=== PATIENT | female | born 1925 | race Caucasian/White ===

== ENCOUNTER 2016-06-09 16:57 | Emergency (ER) | payer MEDICARE ==
[~2016-06-09] VITALS: Ht 154.9 cm; Wt 63.5 kg
[~2016-06-09 16:57] MED LIST: ACET-2267 PO; ALBU2.5V4 INH; ALBU8.5H2 IH; AMIO200T10 PO; AMIO200T2 PO; AMIO400T5 PO; AMLO10TA PO; AMLO10TA82 PO; APIX5TAB PO; ASP325T PO; ASP325TEC PO; ASP81TEC PO; ASPI-586 PO; ASPI-875 PO; ATR20T; CARV12.5 PO; CARV12.53 PO; CARV25TA PO; CEFD300C3 PO; CEFU500T PO; CEFU500T5 PO; CERAVE TOP; CHLO473M PO; CLC500CT PO; CLD600T PO; CLOBETASOL; CYCL1DRO OU; DIGO125T PO; DIOVAN; DOXY100T2 PO; ENAL10TA; ENAL2.5T PO; FLUO40CR3 TOP; FLUO40CR8 TP; FLUT16SP22; FLUT16SP22 NSEACH; FLUT9.9S; FURO20TA4 PO; FURO40TA4 PO; GLUC-147 PO; GLUC500C2 PO; GLUCOSAMINE; GUAI600T43 PO; HCT; HYDR-2854 PO; HYDR-3729 PO; HYDR-3812 PO; HYDR-700 PO; IBUP-15 PO; IPRA0.2S18 IH; IPRA3AMP IH; KETO15CR TP; LISI-596 PO; LISI10TA PO; LISI1TAB PO; LORA10TA7 PO; LOSA100T16 PO; LOSA50TA6 PO; LOVA10TA PO; LSNP20T PO; METO-270 PO; METO-272 PO; METO100T2 PO; METO50TA7; MTP50T PO; MULT-608; MULT-974 PO; MULT1TAB63; NFAMINITAB PO; NITR100C3 PO; NTR.4SL; NTR.4SL SL; OMEG1CAP74 PO; OMG1KC PO; OTC LAXATIVE; OXB5TCR; OXYB10TA PO; OXYB5TAB9 PO; PHEN200T27 PO; POLY119P PO; POLY255P PO; POTA10CA43 PO; POTA10CA68 PO; POTA10TA6 PO; POTA20TA15 PO; PRADAXA PO; PRD10T PO; PRD20T PO; PROP15DR OU; RANI-10 PO; RANI150T11 PO; RISP0.5T3 PO; RMP5C; ROSU5TAB; ROSU5TAB PO; SODI51CR7 DT; SULAR; TIOT18CA2 IH; TOBR5DRO12; TR1C15 TP; TRET40CR2 TP; TRIA15CR TP; WARF-47 PO; WARF2TAB6 PO; WARF2TAB8 PO; WRF1T PO; WRF2T PO; [UNRECOGNIZED DRUG - OTHER]
--- OUTSIDE RECORDS SUMMARY | 2016-06-09 17:02 | XMS REPORT | Continuity of Care Document ---
Author Author [facility] Organization [facility] Address Unknown Phone Unavailable Care Team Providers Care Insurance Law Specialist Name Role Phone Francisco J Sweeney PCP [phone] Source Comments Some departments are not documenting in the electronic medical record. If you do not see the information that you expected, contact Release of Information in the Health Information Management department at [phone] for further assistance in locating additional records.[facility] Active Allergies and Adverse Reactions Allergen Noted Date Severity Reactions Comments Pradaxa 12/18/2013 UNKNOWN Current Medications Prescription Sig. Disp. Refills Start End Date Status Date lovastatin(+) (MEVACOR) Take 10 mg by mouth at Active 10 mg PO tablet bedtime daily. CALCIUM CARBONATE/VITAMIN Take 1,200 mg by mouth. Active D3 (CALCIUM 600 + D PO) oxybutynin (DITROPAN) 5 Take 5 mg by mouth four Active mg tablet times daily. ranitidine(+) (ZANTAC) Take 150 mg by mouth as Active 150 mg tablet Needed. PEG 400-Propylene Glycol Place into or around Active (SYSTANE) 0.4-0.3 % drop eye(s) twice daily. MULTIVITAMIN PO Take 1 Tab by mouth Active daily. polyethylene glycol 3350 Take 17 g by mouth daily. Active (GLYCOLAX; MIRALAX) 17 gram/dose powder glucosamine Take 1 Tab by mouth twice Active mtr-shqxywmssf-ekk daily. (CONDROLITE) 500-200-150 mg tab carvedilol (COREG) 6.25 Take 6.25 mg by mouth Active mg tablet twice daily with meals. tiotropium (SPIRIVA) 18 Inhale 18 mcg by mouth Active mcg capsule for inhaler daily. OXYGEN-AIR DELIVERY Use as directed at Active [facility] bedtime daily. 2 Liters at bedtime albuterol (VENTOLIN HFA, Inhale 2 Puffs by mouth Active PROAIR HFA) 90 every 6 hours as needed mcg/actuation inhaler for Wheezing. aspirin EC 81 mg tablet Take 81 mg by mouth Active daily. Active Problems Problem Noted Date TR (tricuspid regurgitation) 04/26/2015 Last Assessment & Plan: ADRIA in 01/2014: Moderate tricuspid valve regurgitation. EF 55%, PFO+ Sick sinus syndrome ([facility]) 04/08/2015 Overview: Pacemaker Tobacco use 04/08/2015 Hyperlipidemia 12/18/2013 Overview: Last profile 12/2012 cholesterol 136, HDL 47, LDL 60, triglyceride 147 CHF (congestive heart failure) ([facility]) 12/18/2013 Overview: Chronic compensated left ventricular systolic dysfunction. Echo 11/12/2013 1. Normal left ventricle size w/mild left ventricular hypertropy. Normal systolic function. EF 50% 2. Left atrial dilation, dilated right heart chambers. 3. Mild mitral regurg. Mild tricuspid regurg. 4. Pulmonary hypertension with estimated pulmonary artery pressure of 50 mmHg Diastolic dysfunction 12/18/2013 Pulmonary hypertension ([facility]) 12/18/2013 Overview: Echo 11/12/2013 - Pulmonary hypertension with estimated pulmonary artery pressure of 50 mmHg ASD (atrial septal defect) 12/18/2013 Overview: With [id number] shunt. Asymptomatic. PFO (patent foramen ovale) 12/18/2013 Carotid stenosis 12/13/2012 Overview: Carotid duplex - 08/08/2012 - Right severe ICA stenosis 60-79%. Left mod ICA stenosis 40-59% 04/29/2014 - Carotid Ultrasound: Severe carotid stenosis on the right side, slightly deteriorated compared to the previous study. Moderate carotid stenosis 40 - 59% on the left side, nonobstructive disease, antegrade vertebral flow. Recommend one year follow up. ([employer]ia [employer]) 12/2012; Carotid angiogram at [facility]: Right carotid showed 40-45% narrowing. Left carotid no stenosis. L ast Assessment & Plan: 12/2012: Interventional radiology carotid angiogram: Right carotid showed 40-45% narrowing. Left carotid no stenosis. Right carotid was false positive on other tests due to severe calcification. Dr. Jose from CT surgery evaluated and recommended no surgery. Unless she is symptomatic ultrasound is going to be false positive and angiogram will be needed. 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 CAD (coronary artery disease) 02/03/2011 Overview: 1. Pt states that she had stents placed in 1999 in [place], [place]. No records. 2. Cardiolite stress test 11/20/07: A. Positive stress test by EKG criteria B. Frequent PVCs and few episodes of VT during exercise C. Hypotension induced by exercise, returned to baseline during recovery. 3. Cardiac Cath : December, A. Patent stents in the LAD and RCA. Mild to moderate instent restenosis In the LAD B. 60% ostial diagonal obtuse marginal branch, mainly nonobstructive disease 1. Medical therapy 4. Lexiscan Stress Test:11/26/2012: Nl LV size with mild hypokinesia involving the anterior wall and anterior septum, true septum. Calculated EF at 45% No significant ischemia or infoarciton on SPECT images. Freq PVC's and atrial premature contractions. Atrial fibrillation, persistent (HCC) 02/03/2011 Overview: Pt states that this started when having bladder tumors removed in Apr. 1. Echo: 11/09/10 A. Normal left ventricular size with mid hypokinesia involving the anterior wall, anteroseptum. Estimated EF is 40% B. Biatrial enlargement with atrial septal defect with left to right shunt. C. Mild to moderate mitral regurgitaion, moderate tricuspid regurgitation. D. Estimated pulmonary artery pressure of 30 mmHg. 2. Plan on 01/25/[address] Mc was for ADRIA and Cardioversion. 3. ADRIA: 01/27/11 A. Persistence of echogenic density within the left atrial appendage, probably representing a thrombus at the left atrial Appendage. B. Dilated left ventricle with diffuse left ventricular hypokinesia. C. Estimated EF is 30 % D. Atrial septal defect with left to right shunt 4. Plan: Referral to an cod clerk. 5. Pacemaker insertion Dr Jesusita Poole, [place], [place] 03/08/11 per pt. (see procedure note scanned into [employer] [place]) 6. 01/15/2014 - DCCV: Successful DC cardioversion of Atrial fibrillation to an atrial paced rhythm. Restarted on Amiodarone. L ast Assessment & Plan: Failed Amiodarone and DCCV. D/C Amiodarone Start Digoxin Consider d/c Antiocaogulation Resolved Problems Problem Noted Date Resolved Date Sick sinus syndrome (HCC) 12/18/2013 03/06/2015 Overview: PPM 03/06/2011 medtronic Atrial thrombus (HCC) 02/03/2011 03/06/2015 Overview: Found with ADRIA on 01/27/11 and post PAF which started in Apr according to the pt. Most Recent Encounters Date Type Specialty Providers Description 06/09/2016 Documentation Cardiology Riya Damon, CONRADO 05/18/2016 Documentation Cardiology Carissa Santos RN Other - Via [employer] heart cath report scanned to patient chart 05/10/2016 Documentation Cardiology Elis Dunlap, Anticoagulation - INR RN 2.0-managed by PCP 04/13/2016 Documentation Cardiology Ange Ledezma Labs Only - Historical 04/12/2016 Documentation Cardiology Xin Nolasco RN Lab Results - INR 2.9, PCP manages 03/23/2016 Documentation Cardiology Ange Ledezma Labs Only - Historical Labs 03/15/2016 Documentation Cardiology Riya Damon RN Anticoagulation - INR 2.6 from PCP office Social History Tobacco Use Types Packs/Day Years Used Date Current Some Day Smoker Cigarettes 0.5 60 Smokeless Tobacco: Never Used Alcohol Use Drinks/Week oz/Week Comments Yes 2 Glasses of 1.2 3 times weekly wine Last Filed Vital Signs Vital Sign Reading Time Taken Blood Pressure 90/50 04/11/2015 9:21 AM WIRE COATING MACHINE OPERATOR Pulse 91 04/11/2015 9:11 AM WIRE COATING MACHINE OPERATOR Temperature 36.6 C (97.9 F) 12/13/2012 9:18 AM CDT Respiratory Rate - - Height 1.626 m (5' 4.02") 04/11/2015 9:11 AM WIRE COATING MACHINE OPERATOR Weight 66.044 kg (145 lb 9.6 oz) 04/11/2015 9:11 AM WIRE COATING MACHINE OPERATOR Body Mass Index 24.98 04/11/2015 9:11 AM WIRE COATING MACHINE OPERATOR Oxygen Saturation 98% 01/15/2014 11:00 AM CDT Plan of Care Health Maintenance Due Date Last Done Comments Amiodarone Monitoring 1925 Physical (Comprehensive) 11/12/1934 Exam Pertussis Vaccine 11/12/1938 Tetanus Vaccine 11/12/1944 Shingles Vaccine 1987 Osteoporosis Screening 11/12/1992 Prevnar/Pneumovax (#1) 11/12/1992 Influenza Vaccine 02/05/2016 Results from Last 3 Months PROTIME INR (PT) (06/09/2016)Only the most recent of 3 results within the time period is included. Component Value Range INR 1.7 Specimen Blood Narrative lab rec'd for historical purpose from her primary cardiology, Dr Mc. HEMOGLOBIN A1C (04/12/2016) Component Value Range Hemoglobin A1C 6.3 4.2-5.8 Specimen Blood CBC (04/12/2016) Component Value Range White Blood Cells 5.41 RBC 4.67 Hemoglobin 12.4 13.0-15.0 Hematocrit 39.6 MCV 84.8 MCH 26.6 27.0-31.0 MCHC 31.3 32.0-36.0 Platelet Count 171 RDW 19.5 11.6-14.8 Specimen Blood COMPREHENSIVE METABOLIC PANEL (04/12/2016) Component Value Range Sodium 141 Potassium 4.1 Chloride 102 CO2 31.0 Blood Urea Nitrogen 19 Creatinine 0.6 Glucose 94 Calcium 9.0 Total Protein 6.6 Total Bilirubin 1.4 Albumin 3.8 Alk Phosphatase 114 AST (SGOT) 20 ALT (SGPT) 13 eGFR Non 102 Anion Gap 12 Specimen Blood BASIC METABOLIC PANEL (03/23/2016) Component Value Range Sodium 138 Potassium 4.1 Chloride 98 CO2 33.0 Blood Urea Nitrogen 17 Creatinine 0.6 Glucose 92 Calcium 9.1 eGFR Non 108 eGFR 130.9 Anion Gap 11 Specimen Blood
[2016-06-09] MEDS ORDERED: NS IV 500 ML 500 ML IV ONE (17:06)
--- NOTE | 2016-06-09 17:30 | ED General ---
General Chief Complaint: General Problems/Pain Nursing Triage Note: PT TO RM 7 BY [facility] WITH CC OF FAMILY STATING HER B/P WAS HIGH AND AND THEN LOW, AND THAT SHE WAS NOT VERY ALERT. EMS STATED B/P WAS 130/80 AND THE PT STATED SHE DID NOT KNOW WHY SHE WAS BEING BROUIGHT TO THE HOSPITAL. Nursing Sepsis Screen: No Definite Risk Source of Information: Patient, EMS Exam Limitations: No Limitations (APRIL GEORGE MD) History of Present Illness Time Seen by Provider: 17:00 Initial Comments Here by EMS with report of high and low blood pressure at home. Apparently she' s had a pretty big day in that she had family around and then went out to lunch. There was a lot of activity this afternoon and apparently she was tired and then was somewhat slumped over sleeping intermittently and complaining of left wrist pain and neck pain. They were concerned about her well-being and took her blood pressure which was low. It was later high and then back more towards normal. Patient wasn't responding appropriately to family so they called EMS. On EMS arrival, patient was normal acting and in no distress and had no complaints. This continued until arrival here. Patient admits that she is tired. She does recount the days events without difficulty. The daughters report that she had the events as described above and were able to show documentation of blood pressures at home. Patient has had recent hospitalization for UTI and bronchitis versus pneumonia. She just recently continued antibiotic for UTI. Daughter reports that the urine has now changed again and she is concerned about urinary tract infection. They report that they did get a call from Dr. Mc's office because her INR was out of whack but they don't know if it was high or low and are awaiting instructions. Patient denies chest pain, breathing problems, nausea, vomiting or diarrhea. She did eat well today. She does have CHF and has bilateral lower extremity edema that is not worse currently but does have some weeping and has elastic bandages on the lower extremity. Timing/Duration: 1-3 Hours, Changing Over Time Severity: Mild, Moderate Modifying Factors: improves with Rest Associated Systoms: No Chest Pain, No Cough, No Fever/Chills, No Nausea/ Vomiting, No Shortness of Air, Weakness (APRIL GEORGE MD) Allergies and Home Medications Allergies Coded Allergies: latex (Verified Allergy, Mild, ITCHING, 05/07/15) Uncoded Allergies: SOME STATINS (Allergy, Mild, 04/16/09) Home Medications Acetaminophen 500 Mg Tablet 1,000 MG PO Q6H PRN PRN PAIN (Reported) TAKES 2 (500MG) TABLETS Albuterol Sulfate 2.5 Mg/3 Ml Vial.neb #90 2.5 MG INH RTQ2H PRN PRN SHORTNESS OF BREATH Prescribed by: ELLEN PETERSON on 05/27/16 0907 Cyclosporine 1 Each Droperette 1 DROP OU BID (Reported) Digoxin 125 Mcg Tablet 125 MCG PO HS (Reported) Fluticasone Propionate 9.9 Ml Reseda.susp 1 SPRAY NA BID (Reported) Furosemide 40 Mg Tablet 40 MG PO DAILY (Reported) Guaifenesin 600 Mg Tab.er.12h #60 600 MG PO BID Prescribed by: ELLEN PETERSON on 05/27/16 0907 Hydroxyzine HCl 25 Mg Tablet 12.5-25 MG PO HS (Reported) TAKES 1/2 TO 1 TABLET AT BEDTIME DEPENDING ON DROWSINESS Ipratropium/Albuterol Sulfate 3 Ml Ampul.neb 3 ML IH Q6H PRN PRN SHORTNESS OF BREATH (Reported) Ketoconazole 15 Gm Cream..g. TP BID (Reported) APPLY TO EAR - 2% Lovastatin 10 Mg Tablet 10 MG PO HS (Reported) Metoprolol Succinate 50 Mg Tab.er.24h 50 MG PO DAILY (Reported) Oxybutynin Chloride 5 Mg Tablet 5 MG PO QID (Reported) Polyethylene Glycol 3350 255 Gm Powder 17 GM PO DAILY PRN PRN CONSTIPATION ( Reported) Potassium Chloride 10 Meq Capsule.er 10 MEQ PO BID (Reported) Prednisone 10 Mg Tab PO UD (Reported) FILLED 05/20/16 #43 FOR A 14 DAY TAPER 6 TABS PO QD X 2 5 TABS PO QD X 2 4 TABS PO QD X 2 3 TABS PO QD X 2 2 TABS PO QD X 2 1 TAB PO QD X 2 1/2 TAB PO QD X 2 Propylene Glycol/Peg 400 5 Ml Drops 1 DROP OU Q4H PRN PRN DRY EYES (Reported) Ranitidine HCl 150 Mg Tablet 150 MG PO BID (Reported) Risperidone 0.5 Mg Tablet 0.5 MG PO HS (Reported) Tiotropium Dorrance 1 Inh Aerp 1 CAP IH DAILY (Reported) Triamcinolone Acet 15 Gm Cr TP BID (Reported) 1% Vitamin C/Vitamin E 1 Tab Tab 1 TAB PO DAILY (Reported) Warfarin Sodium 2 Mg Tablet #30 2 MG PO HS give 1mg dose x 3 days upon discharge from hospital then resume previous coumadin dosing at 2mg daily thereafter Prescribed by: ELLEN PETERSON on 05/27/16 0907 Constitutional: see HPINo chills, No fever EENTM: no symptoms reported Respiratory: see HPI Cardiovascular: see HPI edema Gastrointestinal: no symptoms reported Genitourinary: see HPI Musculoskeletal: see HPI joint pain muscle pain Skin: no symptoms reported Psychiatric/Neurological: No Symptoms Reported (APRIL GEORGE MD) All Other Systems Reviewed Negative Unless Noted: Yes (APRIL GEORGE MD) Past Xgqwqow-Jgqozz-Zusuwr Hx Patient Social History Alcohol Use: Denies Use Recreational Drug Use: No Smoking Status: Former Smoker Type Used: Cigarettes 2nd Hand Smoke Exposure: Yes Recent Foreign Travel: No Contact w/Someone Who Travel: No Recent Infectious Disease Expo: No Recent Hopitalizations: No (APRIL GEORGE MD) Immunizations Up To Date Tetanus Booster (TDap): Less than 5yrs PED Vaccines UTD: Yes Date of Pneumonia Vaccine: Jun 06, 2013 Date of Influenza Vaccine: Mar 17, 2016 (APRIL GEORGE MD) Seasonal Allergies Seasonal Allergies: No (APRIL GEORGE MD) Surgeries HX Surgeries: Yes (ECTOPIC , BREAST BX, CATARACTS, LEFT KNEE SCOPE, L hip surgery) Surgeries: Bladder Surgery, Orthopedic (APRIL GEORGE MD) Respiratory Hx Respiratory Disorders: Yes (WEARS OXYGEN AT HS) Respiratory Disorders: COPD, Emphysema (APRIL GEORGE MD) Cardiovascular Hx Cardiac Disorders: Yes (ADRIA, Cardioversion 03/03/11, PACEMAKER 2011, OR 10 years ago) (APRIL GEORGE MD) Neurological Hx Neurological Disorders: No (APRIL GEORGE MD) Reproductive System Hx Reproductive Disorders: No Sexually Transmitted Disease: No HIV/AIDS: No Female Reproductive Disorders: Denies (APRIL GEORGE MD) Genitourinary Hx Genitourinary Disorders: Yes (HX bladder cancer with tumor removal by .) (APRIL GEORGE MD) Gastrointestinal Hx Gastrointestinal Disorders: Yes Gastrointestinal Disorders: Gastroesophageal Reflux, Chronic Constipation (APRIL GEORGE MD) Musculoskeletal Hx Musculoskeletal Disorders: Yes Musculoskeletal Disorders: Degenerate Disk Disease, Osteoporosis, Arthritis (APRIL GEORGE MD) Endocrine Hx Endocrine Disorders: No (APRIL GEORGE MD) HEENT HX ENT Disorders: Yes (dry eyes from cataract removal) Loss of Vision: Denies Hearing Impairment: Hard of Hearing (APRIL GEORGE MD) Cancer Hx Cancer: Yes (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, bladder cancer-removed) Cancer: Bladder, Skin (APRIL GEORGE MD) Psychosocial Hx Psychiatric Problems: No (APRIL GEORGE MD) Integumentary HX Skin/Integumentary Disorder: Yes ( KERATOSIS) Skin/Integumentary Disorders: Recent Skin Changes, Psoriasis (APRIL GEORGE MD) Blood Transfusions Hx Blood Disorders: No Adverse Reaction to a Blood Tr: No (APRIL GEORGE MD) Reviewed Nursing Assessment Reviewed/Agree w Nursing PMH: Yes (APRIL GEORGE MD) Family Medical History Significant Family History: Heart Disease, Cancer, Diabetes, Hypertension Family Medial History: Colon cancer 19 MOTHER Diabetes mellitus 19 MOTHER Hypercholesterolemia 19 MOTHER G8 BROTHER Hypertension 19 MOTHER Prostate cancer 19 FATHER (APRIL GEORGE MD) Family Medial History: Colon cancer 19 MOTHER Diabetes mellitus 19 MOTHER Hypercholesterolemia 19 MOTHER G8 BROTHER Hypertension 19 MOTHER Prostate cancer 19 FATHER (LEIA GUSMAN MD) Physical Exam Vital Signs Vital Sign - Last 12Hours 06/09/16 17:04 Temp 99.0 Pulse 80 Resp 20 B/P 143/107 Pulse Ox 100 O2 Delivery Nasal Cannula O2 Flow Rate 2 (LEIA GUSMAN MD) Vital Signs Capillary Refill : Less Than 3 Seconds (APRIL GEORGE MD) General Appearance: No Apparent Distress WD/WN HEENT: PERRL/EOMI Pharynx Normal Neck: Non Tender Supple Respiratory: Lungs Clear Normal Breath Sounds Cardiovascular: Regular Rate, Rhythm No Murmur Gastrointestinal: Non Tender Soft Back: Normal Inspection No CVA Tenderness No Vertebral Tenderness Extremity: Non Tender No Calf Tenderness Pedal Edema (bilateral. Leg wraps in place to the area of the lower extremity from foot to just below the knee) Neurologic/Psychiatric: Alert No Motor/Sensory Deficits Normal Mood/Affect Skin: Warm/DryNo Rash (APRIL GEORGE MD) Progress/Results/Core Measures Results/Orders Lab Results Laboratory Tests Test 06/09/16 17:25 06/09/16 17:55 Range/Units Activated Partial Thromboplast Time 31 24-35 SEC Alanine Aminotransferase (ALT/SGPT) 23 0-55 U/L Albumin 3.9 3.2-4.5 G/DL Alkaline Phosphatase 142 H 40-136 U/L Anion Gap 11 5-14 MMOL/L Aspartate Amino Transf (AST/SGOT) 29 5-34 U/L BUN/Creatinine Ratio 27 Basophils # (Auto) 0.0 0.0-0.1 10^3/uL Basophils (%) (Auto) 0 0-10 % Blood Urea Nitrogen 22 H 7-18 MG/DL C-Reactive Protein High Sensitivity 0.90 H 0.00-0.50 MG/DL Calcium Level 8.7 8.5-10.1 MG/DL Carbon Dioxide Level 35 H 21-32 MMOL/L Chloride Level 96 L 98-107 MMOL/L Creatinine 0.81 0.60-1.30 MG/DL Eosinophils # (Auto) 0.1 0.0-0.3 10^3/uL Eosinophils (%) (Auto) 1 0-10 % Estimat Glomerular Filtration Rate > 60 Glucose Level 117 H 70-105 MG/DL Hematocrit 43 35-52 % Hemoglobin 12.8 11.5-16.0 G/DL INR Comment 1.7 H 0.8-1.4 Lymphocytes # (Auto) 0.9 L 1.0-4.0 X 10^3 Lymphocytes (%) (Auto) 11 L 12-44 % Mean Corpuscular Hemoglobin 26 25-34 PG Mean Corpuscular Hemoglobin Concent 30 L 32-36 G/DL Mean Corpuscular Volume 85 80-99 FL Mean Platelet Volume 10.7 H 7.4-10.4 FL Monocytes # (Auto) 0.6 0.0-1.0 X 10^3 Monocytes (%) (Auto) 8 0-12 % Neutrophils # (Auto) 6.1 1.8-7.8 X 10^3 Neutrophils (%) (Auto) 80 H 42-75 % Platelet Count 146 130-400 10^3/uL Potassium Level 3.7 3.6-5.0 MMOL/L Prothrombin Time 19.3 H 12.2-14.7 SEC Red Blood Count 5.01 4.35-5.85 10^6/uL Red Cell Distribution Width 24.9 H 10.0-14.5 % Sodium Level 142 135-145 MMOL/L Total Bilirubin 1.3 H 0.1-1.0 MG/DL Total Protein 6.8 6.4-8.2 G/DL White Blood Count 7.7 4.3-11.0 10^3/uL Urine Bacteria TRACE /HPF Urine Bilirubin NEGATIVE NEGATIVE Urine Casts NONE /LPF Urine Clarity SLIGHTLY CLOUDY Urine Color YELLOW Urine Crystals NONE /LPF Urine Culture Indicated NO Urine Glucose (UA) NEGATIVE NEGATIVE Urine Ketones NEGATIVE NEGATIVE Urine Leukocyte Esterase 1+ H NEGATIVE Urine Mucus NEGATIVE /LPF Urine Nitrite NEGATIVE NEGATIVE Urine Protein 2+ H NEGATIVE Urine RBC NONE /HPF Urine RBC (Auto) NEGATIVE NEGATIVE Urine Specific Kite 1.015 L 1.016-1.022 Urine Squamous Epithelial Cells 0-2 /HPF Urine Urobilinogen NORMAL NORMAL MG/DL Urine WBC 0-2 /HPF Urine pH 7 5-9 (LEIA GUSAMN MD) Lab Results Laboratory Tests Test 06/09/16 17:25 Range/Units Basophils # (Auto) 0.0 0.0-0.1 10^3/uL Basophils (%) (Auto) 0 0-10 % Eosinophils # (Auto) 0.1 0.0-0.3 10^3/uL Eosinophils (%) (Auto) 1 0-10 % Hematocrit 43 35-52 % Hemoglobin 12.8 11.5-16.0 G/DL Lymphocytes # (Auto) 0.9 L 1.0-4.0 X 10^3 Lymphocytes (%) (Auto) 11 L 12-44 % Mean Corpuscular Hemoglobin 26 25-34 PG Mean Corpuscular Hemoglobin Concent 30 L 32-36 G/DL Mean Corpuscular Volume 85 80-99 FL Mean Platelet Volume 10.7 H 7.4-10.4 FL Monocytes # (Auto) 0.6 0.0-1.0 X 10^3 Monocytes (%) (Auto) 8 0-12 % Neutrophils # (Auto) 6.1 1.8-7.8 X 10^3 Neutrophils (%) (Auto) 80 H 42-75 % Platelet Count 146 130-400 10^3/uL Red Blood Count 5.01 4.35-5.85 10^6/uL Red Cell Distribution Width 24.9 H 10.0-14.5 % White Blood Count 7.7 4.3-11.0 10^3/uL (APRIL GEORGE MD) Medications Given in ED Current Medications Medications Dose Ordered Sig/Rajni Route Start Time Stop Time Status Last Admin Dose Admin Sodium Chloride 250 ml @ 0 mls/hr Q0M ONCE IV 06/09/16 17:51 06/09/16 17:53 DC 06/09/16 18:06 250 MLS/HR (LEIA GUSMAN MD) Vital Signs/I&O Vital Sign - Last 12Hours 06/09/16 06/09/16 17:04 18:56 Temp 99.0 99.0 Pulse 80 78 Resp 20 20 B/P 143/107 Pulse Ox 100 99 O2 Delivery Nasal Cannula Nasal Cannula O2 Flow Rate 2 2 (LEIA GUSMAN MD) Blood Pressure Mean: 119 Progress Note : Progress Note Seen and evaluated. IV, labs, EKG and UA ordered. Normal saline 250 mL bolus. Monitor patient. (APRIL GEORGE MD) Progress Note : Time: 18:54 Progress Note Care of this delightful lady was assumed from Dr. George at shift change. Lab results were reviewed and discussed with patient/family. She remains asymptomatic except for being groggy/tired. She has no complaints and denies any pain. Repeat examination showed no obvious neurologic changes. Her arms are grossly intact and she retains sensation and movement of all 4 extremities equally. Finger to nose is normal. I discussed the potential for further workup including CT of the head or CT angiogram of the head and neck. I discussed with patient and family the reasons for performing these tests which could include carotid disease or intracranial hemorrhage. Since her symptoms have improved, they chose to forego further testing. They have recently visited with a vascular surgeon as well and chose to forego further imaging at that time as well. They do not feel at age 89 she is likely to be a surgical candidate, and therefore they are less interested in pursuing the studies. They understand to return for worsening or recurrent symptoms. They were instructed to follow-up with primary care regarding the subtherapeutic INR and episode for which she was seen today. (LEIA GUSMAN MD) ECG Initial ECG Impression Date: Jun 09, 2016 Initial ECG Impression Time: 17:12 Initial ECG Rhythm: A Fib/Flutter Comment Atrial fibrillation with PVC noted. Normal axis. No evidence of ST elevation OR. Similar to previous of 06/14/15. Interpreted by me. (APRIL GEORGE MD) Departure Impression Impression: Primary Impression: Altered mental status Qualified Code: R41.82 - Altered mental status, unspecified Additional Impressions: Labile blood pressure subtherapeutic INR Disposition: HOME, SELF-CARE Condition: Improved Departure-Patient Inst. Decision time for Depature: 18:46 (LEIA GUSMAN MD) Referrals: ELLEN PETERSON MD (PCP/Family) Primary Care Physician Patient Instructions: Anti-Clotting Medicines: Warfarin (Coumadin) Add. Discharge Instructions: Follow-up with your primary care provider. Call their office tomorrow for instructions regarding your Coumadin dosing. Your INR tonight was 1.7. Return to care if symptoms return/worsen. All discharge instructions reviewed with patient and/or family. Voiced understanding. Copy Copies To 1: ELLEN PETERSON MD, TIMOTHY D MD Jun 09, 2016 17:30 LEIA GUSMAN MD Jun 09, 2016 18:49
[2016-06-09 17:33] LABS: BASOPHILS % (AUTO) 0 % (0-10); EOSINOPHILS # (AUTO) 0.1 10^3/uL (0.0-0.3); EOSINOPHILS % (AUTO) 1 % (0-10); LYMPHOCYTES # (AUTO) 0.9 X 10^3 (1.0-4.0); LYMPHOCYTES % (AUTO) 11 % (12-44); MEAN CORPUSCULAR HEMOGLOBIN 26 PG (25-34); MEAN CORPUSCULAR HGB CONC 30 G/DL (32-36); MEAN CORPUSCULAR VOLUME 85 FL (80-99); MEAN PLATELET VOLUME 10.7 FL (7.4-10.4); MONOCYTES # (AUTO) 0.6 X 10^3 (0.0-1.0); MONOCYTES % (AUTO) 8 % (0-12); NEUTROPHILS # (AUTO) 6.1 X 10^3 (1.8-7.8); NEUTROPHILS % (AUTO) 80 % (42-75); PLATELET COUNT 146 10^3/uL (130-400); RED BLOOD COUNT 5.01 10^6/uL (4.35-5.85); RED CELL DISTRIBUTION WIDTH 24.9 % (10.0-14.5); WHITE BLOOD COUNT 7.7 10^3/uL (4.3-11.0)
[2016-06-09] MEDS ORDERED: NS (IVPB) 250 ML IV ONE (17:51)
[2016-06-09 17:57] LABS: ALANINE AMINOTRANSFERASE 23 U/L (0-55); ALBUMIN 3.9 G/DL (3.2-4.5); ANION GAP 11 MMOL/L (5-14); ASPARTATE AMINO TRANSFERASE 29 U/L (5-34); BILIRUBIN,TOTAL 1.3 MG/DL (0.1-1.0); BLOOD UREA NITROGEN 22 MG/DL (7-18); BUN/CREATININE RATIO 27; CALCIUM 8.7 MG/DL (8.5-10.1); CARBON DIOXIDE 35 MMOL/L (21-32); CHLORIDE 96 MMOL/L (98-107); CREATININE SERUM 0.81 MG/DL (0.60-1.30); GFR ESTIMATED > 60; GLUCOSE 117 MG/DL (70-105); POTASSIUM 3.7 MMOL/L (3.6-5.0); SODIUM 142 MMOL/L (135-145); TOTAL PROTEIN 6.8 G/DL (6.4-8.2)
[2016-06-09 18:04] LABS: BILIRUBIN,URINE NEGATIVE (NEGATIVE); KETONES,URINE NEGATIVE (NEGATIVE); LEUKOCYTE ESTERASE ,URINE 1+ (NEGATIVE); NITRITE,URINE NEGATIVE (NEGATIVE); PH,URINE 7 (5-9); PROTEIN,URINE 2+ (NEGATIVE); UROBILINOGEN,URINE NORMAL (NORMAL)
[2016-06-09 18:11] LABS: INR 1.7 (0.8-1.4); PROTHROMBIN TIME PATIENT 19.3 SEC (12.2-14.7)
[2016-06-09 18:16] LABS: SQUAMOUS EPITHELIAL CELL,UR 0-2 /HPF; WBC,URINE 0-2 /HPF
[2016-06-09 18:56] VITALS: BP 145/104
== END 2016-06-09 18:56 | disposition home or self-care (01) ==
LOC: EDUNIT# 16:57 → ER 16:58
DX: J44.9 Chronic obstructive pulmonary disease, unspecified (principal); I10 Essential (primary) hypertension; R79.1 Abnormal coagulation profile; I50.9 Heart failure, unspecified; R60.0 Localized edema; Z79.899 Other long term (current) drug therapy; Z95.0 Presence of cardiac pacemaker; Z85.3 Personal history of malignant neoplasm of breast; Z85.51 Personal history of malignant neoplasm of bladder
CPT/HCPCS: 36415; 80053; 81000; 85025; 85610; 85730; 86141; 93005; 93041